=== PATIENT | male | born 1990 | race Caucasian/White ===

== ENCOUNTER 2018-05-19 10:36 | Emergency (ER) | payer SELFPAY, OTHER ==
[2018-05-19] MEDS ORDERED: LISSAMINE GREEN OPHTH 1.5 MG STRIP As Ordered (11:24)
[2018-05-19] MEDS ORDERED: FLUORESCEIN OPHTH 1 MG STRIP OU (11:30)
[2018-05-19] MEDS: LISSAMINE GREEN OPHTH 1.5 MG STRIP OU (11:45)
[2018-05-19] MEDS: TETRACAINE 0.5% OPHTH SOLN 4ML OU (11:45)
[2018-05-19] MEDS: ERYTHROMYCIN OPHTH OINT OD (12:14)
== END 2018-05-19 12:19 | disposition home or self-care (01) ==
LOC: M ED 10:36
DX: S05.01XA Injury of conjunctiva and corneal abrasion without foreign body, right eye, initial encounter (principal); X58.XXXA Exposure to other specified factors, initial encounter; Y92.89 Other specified places as the place of occurrence of the external cause
CPT/HCPCS: 99283